=== PATIENT | female | born 1995 | race Two or more races ===

== ENCOUNTER 2018-10-21 11:30 | Emergency (ER) | payer OTHER ==
[2018-10-21 11:37] VITALS: BP 109/77
[2018-10-21] MEDS ORDERED: HYDROXYZINE PAMOATE 25 MG CAPSULE PO ONE (11:50)
--- NOTE | 2018-10-21 11:52 | ER Document Report ---
ED Medical Screen (RME) - General Chief Complaint: Breathing Difficulty Stated Complaint: DIFFICULTY BREATHING Time Seen by Provider: 10/21/18 11:46 TRAVEL OUTSIDE OF THE [place] IN LAST 30 DAYS: No - HPI Notes: 10/21/18 11:50 Patient is a 23-year-old female with a history of asthma and anxiety who presents complaining of possible asthma exacerbation this morning. Patient states that she was at work trying to hold in a cough and when she was finally able to go into the kitchen to cough she was coughing constantly and to the point where she was on her knees. Patient states that she did feel some whee zing at that time, but then she started feeling tingling all of her body and her hands and legs started cramping. She is otherwise been feeling well and has been eating and drinking without difficulty. Denies drug allergies. Patient states that she is feeling better than she was overall. Denies ELLIS, fever, neck pain, URI, CP, Abd pain, or rash. I have treated and performed a rapid initial assessment of this patient. A comprehensive ED assessment and evaluation of the patient, analysis of test results and completion of medical decision making process will be conducted by additional ED providers. PHYSICAL EXAMINATION: GENERAL: Well-appearing, well-nourished and in no acute distress. A&Ox4. Answers questions appropriately. LUNGS: Breath sounds clear to auscultation bilaterally and equal. No wheezes rales or rhonchi. HEART: Regular rate and rhythm without murmurs, rubs, gallops. Extremities: No cyanosis, clubbing, or edema b/l. NEUROLOGICAL: Normal speech, normal gait. PSYCH: Anxious - Related Data Allergies/Adverse Reactions: No Known Allergies Allergy (Unverified 10/21/18 11:36) Physical Exam - Vital signs Vitals: Temp Pulse Resp BP Pulse Ox 98.1 F 74 20 109/77 100 10/21/18 11:35 10/21/18 11:35 10/21/18 11:35 10/21/18 11:35 10/21/18 11:35 Course - Vital Signs Vital signs: Temp Pulse Resp BP Pulse Ox 98.1 F 74 20 109/77 100 10/21/18 11:35 10/21/18 11:35 10/21/18 11:35 10/21/18 11:35 10/21/18 11:35
[2018-10-21] MEDS ORDERED: IPRATROPIUM/ALBUTEROL 0.5-2.5 MG/3 ML AMPUL NEB ONE (12:01)
--- NOTE | 2018-10-21 12:20 | RADIOLOGY REPORT (SQ) ---
EXAM DESCRIPTION: CHEST 2 VIEWS COMPLETED DATE/TIME: 10/21/2018 12:10 pm REASON FOR STUDY: cough COMPARISON: None. EXAM PARAMETERS: NUMBER OF VIEWS: two views TECHNIQUE: Digital Frontal and Lateral radiographic views of the chest acquired. RADIATION DOSE: NA LIMITATIONS: none FINDINGS: LUNGS AND PLEURA: No opacities, masses or pneumothorax. No pleural effusion. MEDIASTINUM AND HILAR STRUCTURES: No masses or contour abnormalities. HEART AND VASCULAR STRUCTURES: Heart normal size. No evidence for failure. BONES: No acute findings. HARDWARE: None in the chest. OTHER: No other significant finding. IMPRESSION: NO ACUTE RADIOGRAPHIC FINDING IN THE CHEST. TECHNICAL DOCUMENTATION: JOB ID: [id number] [employer]- All Rights Reserved Reading location - IP/workstation name: [email or web address]
[2018-10-21 13:04] LABS: ABSOLUTE BASOPHILS # (AUTO) 0.1 10^3/uL (0.0-0.2); ABSOLUTE EOSINOPHILS # (AUTO) 0.3 10^3/uL (0.0-0.6); ABSOLUTE LYMPHOCYTES (AUTO) 1.7 10^3/uL (0.5-4.7); ABSOLUTE MONOCYTES (AUTO) 0.7 10^3/uL (0.1-1.4); ABSOLUTE NEUT (AUTO) 3.6 10^3/uL (1.7-8.2); BASOPHILS % (AUTO) 1.1 % (0-2); EOSINOPHILS % (AUTO) 5.2 % (0-6); HEMATOCRIT 40.1 % (36.0-47.0); HEMOGLOBIN 13.5 g/dL (12.0-15.5); LYMPHOCYTES % (AUTO) 26.6 % (13-45); MEAN CORPUSCULAR HEMOGLOBIN 27.8 pg (27.0-33.4); MEAN CORPUSCULAR HGB CONC 33.6 g/dL (32.0-36.0); MEAN CORPUSCULAR VOLUME 83 fl (80-97); MONOCYTES % (AUTO) 10.9 % (3-13); PLATELET COUNT 356 10^3/uL (150-450); RED BLOOD COUNT 4.85 10^6/uL (3.72-5.28); RED CELL DISTRIBUTION WIDTH 13.5 % (11.5-14.0); SEGMENTED NEUTROPHILS % (AUTO) 56.2 % (42-78); TOTAL CELLS COUNTED % (AUTO) 100 %; WHITE BLOOD COUNT 6.4 10^3/uL (4.0-10.5)
[2018-10-21 13:23] LABS: ALANINE AMINOTRANSFERASE 16 U/L (9-52); ALBUMIN 3.9 g/dL (3.5-5.0); ALKALINE PHOSPHATASE 49 U/L (38-126); ANION GAP 9 (5-19); ASPARTATE AMINO TRANSFERASE 20 U/L (14-36); BILIRUBIN,DIRECT 0.2 mg/dL (0.0-0.4); BILIRUBIN,TOTAL 0.3 mg/dL (0.2-1.3); BLOOD UREA NITROGEN 7 mg/dL (7-20); CALCIUM 8.9 mg/dL (8.4-10.2); CARBON DIOXIDE 25 mmol/L (22-30); CHLORIDE 107 mmol/L (98-107); GLUCOSE 89 mg/dL (75-110); PHOSPHORUS 2.4 mg/dL (2.5-4.5); SODIUM 141.2 mmol/L (137-145); TOTAL PROTEIN 7.2 g/dL (6.3-8.2)
--- NOTE | 2018-10-21 14:39 | ER Document Report ---
ED Respiratory Problem - General Chief Complaint: Breathing Difficulty Stated Complaint: DIFFICULTY BREATHING Time Seen by Provider: 10/21/18 11:46 Primary Care Provider: MISHA RUDD FNP [Primary Care Provider] - Follow up as needed Mode of Arrival: Ambulatory Information source: Patient Notes: Patient is a 23-year-old female with history of asthma presenting with an acute asthma exacerbation. She states that she tried taking a puff of her albuterol inhaler however while she was at work she felt very short of breath and wanted to be seen. Patient denies any fevers or chills. She does report over the last few days she has had cough and congestion. TRAVEL OUTSIDE OF THE [place] IN LAST 30 DAYS: No - Related Data Allergies/Adverse Reactions: No Known Allergies Allergy (Unverified 10/21/18 11:36) Past Medical History - General Information source: Patient - Social History Smoking Status: Never Smoker Frequency of alcohol use: None Drug Abuse: None Family History: Reviewed & Not Pertinent Patient has suicidal ideation: No Patient has homicidal ideation: No Pulmonary Medical History: Reports: Hx Asthma Renal/ Medical History: Denies: Hx Peritoneal Dialysis Review of Systems - Review of Systems Constitutional: No symptoms reported EENT: No symptoms reported Cardiovascular: No symptoms reported Respiratory: Cough, Wheezing Gastrointestinal: No symptoms reported Genitourinary: No symptoms reported Female Genitourinary: No symptoms reported Musculoskeletal: No symptoms reported Skin: No symptoms reported Hematologic/Lymphatic: No symptoms reported Neurological/Psychological: No symptoms reported Physical Exam - Vital signs Vitals: Temp Pulse Resp BP Pulse Ox 98.1 F 74 20 109/77 100 10/21/18 11:35 10/21/18 11:35 10/21/18 11:35 10/21/18 11:35 10/21/18 11:35 - Notes Notes: PHYSICAL EXAMINATION: GENERAL: Well-appearing, well-nourished and in no acute distress. HEAD: Atraumatic, normocephalic. EYES: Pupils equal round and reactive to light, extraocular movements intact, conjunctiva are normal. ENT: Nares patent, oropharynx clear without exudates. Moist mucous membranes. NECK: Normal range of motion, supple without lymphadenopathy LUNGS: Breath sounds clear to auscultation bilaterally and equal. No wheezes rales or rhonchi. HEART: Regular rate and rhythm without murmurs ABDOMEN: Soft, nontender, nondistended abdomen. No guarding, no rebound. No masses appreciated. Female : deferred Musculoskeletal: Normal range of motion, no pitting or edema. No cyanosis. NEUROLOGICAL: Cranial nerves grossly intact. Normal speech, normal gait. Normal sensory, motor exams PSYCH: Normal mood, normal affect. SKIN: Warm, Dry, normal turgor, no rashes or lesions noted. Course - Re-evaluation Re-evalutation: At the time of my evaluation patient is already received 1 breathing treatment. Her lung sounds are clear and equal bilaterally and she has no increased work of breathing. Patient reports she feels much improved. Patient reports she already has an albuterol inhaler at home and does not need a refill. Patient will be started on a course of prednisone and discharged home. ED return precautions were discussed and patient and family member at bedside verbalized understanding and agreement with same. - Vital Signs Vital signs: Temp Pulse Resp BP Pulse Ox 98.1 F 74 20 109/77 100 10/21/18 11:35 10/21/18 11:35 10/21/18 11:35 10/21/18 11:35 10/21/18 11:35 - Laboratory Result Diagrams: 10/21/18 12:54 10/21/18 12:54 Laboratory results interpreted by me: 10/21/18 12:54 Phosphorus 2.4 L Discharge - Discharge Clinical Impression: Asthma exacerbation Qualifiers: Asthma severity: moderate Asthma persistence: unspecified Qualified Code(s): J45.901 - Unspecified asthma with (acute) exacerbation Condition: Stable Disposition: HOME, SELF-CARE Additional Instructions: You were seen for an asthma exacerbation. Your symptoms improved with treatment here in the emergency department. However, it is very important that you return to the emergency department immediately if you began to have worsening difficulty breathing that does not respond to your normal home nebulizers. You are also being sent home on a five-day course of steroids that you should start taking tomorrow. Please also follow closely with your primary care physician. you should also return to emergency department if you develop fever greater than 101, persistent cough, persistent vomiting, pass out, or any other symptoms that are concerning to you. Prescriptions: RX: Prednisone [Deltasone 20 mg Tablet] 3 tab PO DAILY 5 Days #15 tablet Forms: Return to Work Referrals: MISHA RUDD FNP [Primary Care Provider] - Follow up as needed
--- NOTE | 2018-10-21 22:34 | EKG REPORT ---
SEVERITY:- NORMAL ECG - SINUS RHYTHM : Confirmed by: Elvia Carpenter 21-Oct-2018 22:34:25
== END 2018-10-21 15:01 | disposition home or self-care (01) ==
LOC: ER 11:30
DX: J45.901 Unspecified asthma with (acute) exacerbation (principal); R06.02 Shortness of breath; R05 Cough; R09.81 Nasal congestion
CPT/HCPCS: 93005; 94640; 99285; 36415; 83735; 84100; 85025; 80053; 71046; 93010; J7620

== ENCOUNTER 2018-11-13 16:20 | Emergency (ER) | payer OTHER ==
[2018-11-13] MEDS ORDERED: ALBUTEROL SULFATE 0.083% NEB 2.5 MG/3 ML AMPUL NEB ONE ×2 (17:30→17:56)
--- NOTE | 2018-11-13 17:33 | ER Document Report ---
ED General - General Chief Complaint: Shortness Of Breath Stated Complaint: DIFFICULTY BREATHING Time Seen by Provider: 11/13/18 17:30 Primary Care Provider: MISHA RUDD FNP [Primary Care Provider] - Follow up as needed TRAVEL OUTSIDE OF THE [place] IN LAST 30 DAYS: No - HPI Notes: Patient is a 23-year-old female that presents to the emergency department for chief complaint of asthma exacerbation. Patient was at work and began feeling short of breath. She does have a history of asthma and reports it felt the same. She states she was breathing very rapidly and started to have paresthesias in her fingers and around her mouth. She does report carpopedal spasm as well. Patient states she went into the freezer at work to try and breathe cold air upon the recommendations of a coworker which made her symptoms worse. Patient has not used her albuterol inhaler today. Her last acute asthma exacerbation which required seeing a physician was 3 or 4 weeks ago. She was prescribed prednisone at that time but did not require the prescription and states it resolved on its own after being in the ER. She has not been admitted to the hospital or intubated for her asthma. Patient received DuoNeb and albuterol nebulized as well as 125 mg Solu- Medrol by EMS prior to arrival and reports feeling significantly better. She did describe some chest tightness during asthma exacerbation which she states is now resolved. She denies recent illness fevers and chills. Past Medical History: Asthma Past Surgical History: Tonsillectomy Social History: Occasional tobacco. Denies drug and alcohol use Family History: Reviewed and noncontributory for presenting illness Allergies: Reviewed, see documented allergy list. REVIEW OF SYSTEMS: CONSTITUTIONAL : No fever No chills No diaphoresis No recent illness EENT: No vision changes No congestion No sore throat CARDIOVASCULAR: No chest pain No palpitations RESPIRATORY: shortness of breath No cough difficulty breathing GASTROINTESTINAL: No abdominal pain No nausea No vomiting No diarrhea GENITOURINARY: No dysuria No hematuria No difficulty urinating MUSCULOSKELETAL: No back pain No leg pain No arm pain SKIN: No rashes No lesions LYMPHATIC: No swollen, enlarged glands. NEUROLOGICAL: No lightheadedness No headache No weakness No paresthesias PSYCHIATRIC: No anxiety No depression PHYSICAL EXAMINATION: Vital signs reviewed, nursing noted reviewed. GENERAL: Well-appearing, well-nourished and in no acute distress. HEAD: Atraumatic, normocephalic. EYES: Eyes appear normal, extraocular movements intact, sclera anicteric, conjunctiva are normal. ENT: nares patent, oropharynx clear without exudates. Moist mucous membranes. NECK: Normal range of motion, supple without lymphadenopathy LUNGS: Breath sounds clear to auscultation bilaterally and equal. No wheezes rales or rhonchi. No accessory muscle use or retractions. Speaking in full sentences. HEART: Regular rate and rhythm without murmurs ABDOMEN: Soft, nontender, normoactive bowel sounds. No rebound, guarding, or rigidity. No masses appreciated. EXTREMITIES: Nontender, good range of motion, no pitting or edema. NEUROLOGICAL: No focal neurological deficits. Moves all extremities spontaneously Motor and sensory grossly intact on exam. PSYCH: Normal mood, normal affect. SKIN: Warm, Dry, normal turgor, no rashes or lesions noted on exposed skin - Related Data Allergies/Adverse Reactions: No Known Allergies Allergy (Unverified 10/21/18 11:36) Past Medical History - Social History Smoking Status: Current Some Day Smoker Chew tobacco use (# tins/day): No Frequency of alcohol use: Social Drug Abuse: None Family History: Reviewed & Not Pertinent Patient has suicidal ideation: No Patient has homicidal ideation: No Pulmonary Medical History: Reports: Hx Asthma Renal/ Medical History: Denies: Hx Peritoneal Dialysis Course - Re-evaluation Re-evalutation: 11/13/18 17:37 Vitals reviewed. Nursing notes reviewed. Patient reports feeling almost back to normal upon my evaluation. She has received 1 DuoNeb and one albuterol treatment. Patient does not have any appreciable wheezing but will be given another albuterol for her reported symptoms. She is oxygenating at 99% on room air and not using any accessory muscles. She does not appear tachypneic or in any kind of respiratory distress. EKG was obtained showing normal sinus rhythm with no ectopy. Patient's chest tightness is secondary to her asthma exacerbation and I do not suspect ACS. Patient has been using her albuterol inhaler 3 or 4 times a week and we did discuss talking to her PCP about getting on a longer acting inhaler. At this point patient is stable and oxygenating well. She will be discharged home with prescription for prednisone and albuterol spacer. She was told to use the albuterol 2 puffs every 4 hours as needed. She will return to the emergency room for new or worsening symptoms or if she is requiring the albuterol more frequently than every 4 hours. She will follow with her PCP in the next few days for close outpatient reevaluation. - EKG Interpretation by Me Additional EKG results interpreted by me: 11/13/18 17:39 Interpreted by myself 1729: Normal sinus rhythm, rate 89, normal axis, no ectopy, no STEMI, nonspecific T wave changes V3 Discharge - Discharge Clinical Impression: Asthma Qualifiers: Asthma severity: mild Asthma persistence: intermittent Asthma complication type: with acute exacerbation Qualified Code(s): J45.21 - Mild intermittent asthma with (acute) exacerbation Condition: Stable Disposition: HOME, SELF-CARE Instructions: Asthma ([facility]) Additional Instructions: Please return to the emergency department if you have any worsening, or concern of your symptoms. Please return to the emergency department if you develop chest pain, difficulty breathing, severe abdominal pain, or ongoing vomiting. Please follow-up with your primary care physician in 2-3 days and any other recommended physicians. If prescribed, take all medications as directed. If you have any questions or concerns do not hesitate to return the emergency department for evaluation. Use the albuterol spacer with your albuterol inhaler. He is 2 puffs every 4 hours as needed for wheezing and shortness of breath. If you are requiring your albuterol inhaler more often than every 4 hours you should return to the emergency room. Prescriptions: Inhaler, Assist Devices [Space Chamber Plus] 1 each MC Q4 #1 spacer Prednisone [Deltasone 20 mg Tablet] 2 tab PO DAILY 5 Days tablet Forms: Return to Work, Parent Work Note Referrals: MISHA RUDD FNP [Primary Care Provider] - Follow up as needed
[2018-11-13 18:42] VITALS: BP 128/76
--- NOTE | 2018-11-13 22:01 | EKG REPORT ---
SEVERITY:- ABNORMAL ECG - SINUS RHYTHM NONSPECIFIC ST-T CHANGES- INFERIOR LEADS : Confirmed by: Parveen Salmeron MD 13-Nov-2018 22:01:01
== END 2018-11-13 18:42 | disposition home or self-care (01) ==
LOC: ER 16:20
DX: J45.21 Mild intermittent asthma with (acute) exacerbation (principal)
CPT/HCPCS: 93005; 93010; 94640; 99284